=== PATIENT | female | born 1990 | race African-American/Black ===

== ENCOUNTER → 2019-10-17 13:33 | Outpatient (CLI) | payer BC, SELFPAY | PROVIDERS: PCP Family Medicine; Referring Provider Family Medicine; Visit Provider Family Medicine | DX: R05 Cough (principal) | CPT/HCPCS: 87633 ==

== ENCOUNTER → 2020-02-29 16:41 | Outpatient (CLI) | payer OTHER, SELFPAY ==
[2020-02-29 14:59] VITALS: BMI 39.1
[2020-03-05 21:17] LABS: HPV Reflexed? NOT INDICATED
== END ==
PROVIDERS: PCP Family Medicine; Referring Provider Nurse Practitioner Women's Health; Visit Provider Nurse Practitioner Women's Health
DX: Z12.4 Encounter for screening for malignant neoplasm of cervix (principal)
CPT/HCPCS: 88175; G0145

== ENCOUNTER → 2020-08-02 | Outpatient (CLI) | payer OTHER, SELFPAY ==
[2020-08-02 13:55] VITALS: BMI 43.8
== END | disposition home or self-care (01) ==
LOC: LABSPEC 15:17
PROVIDERS: PCP Family Medicine; Referring Provider Obstetrics & Gynecology; Visit Provider Obstetrics & Gynecology
DX: R35.0 Frequency of micturition (principal)
CPT/HCPCS: 87086; 87088

== ENCOUNTER 2021-08-27 11:43 | Outpatient (CLI) | payer OTHER, SELFPAY ==
[2021-08-27 12:17] LABS: Amphetamine Urine VISTA NEGATIVE (<1000 ng/mL); Barbiturate Urine VISTA NEGATIVE (< 200 ng/mL); Benzodiazepine Urine VISTA NEGATIVE (< 200 ng/mL); Cocaine Urine VISTA NEGATIVE (< 300 ng/mL); Ecstacy Urine VISTA NEGATIVE (< 500 ng/mL); Methadone Urine VISTA NEGATIVE (< 300 ng/mL); PCP Urine VISTA NEGATIVE (< 25 ng/mL); THC Urine VISTA NEGATIVE (< 50 ng/mL); Vista UDS pH Range 5
[2021-08-29 00:06] LABS: Chlamydia By Nucleic Acid AMP Negative (Negative)
[2021-08-29 14:34] LABS: Gonococcus By Nucleic Acid AMP Negative (Negative)
== END 2021-08-27 23:59 | disposition home or self-care (01) ==
LOC: LABSPEC 11:44
PROVIDERS: PCP Family Medicine; Visit Provider Obstetrics & Gynecology
DX: O09.90 Supervision of high risk pregnancy, unspecified, unspecified trimester (principal)
CPT/HCPCS: 80307; 87086; 87088; 87491; 87591

== ENCOUNTER 2021-10-22 13:55 | Outpatient (CLI) | payer OTHER, SELFPAY ==
[2021-10-22 14:35] LABS: Absolute Lymphocyte Count 1.89 X10^3/uL (0.83-4.51); Absolute Neutrophil Count 4.4 X10^3/uL (2.0-7.7); Basophil# 0.04 X10^3/uL; Basophil% 0.6 % (0-1); Eosinophil# 0.29 X10^3/uL; Eosinophils% 4.1 % (0-5); Hematocrit 35.2 % (37-47); Hemoglobin 11.2 g/dL (12.0-15.0); Lymphocyte # 1.89 X10^3/ul (0.83-4.51); Lymphocyte % 26.5 % (19-41); Mean Corp Hgb Conc 31.8 g/dL (32-36); Mean Corpuscular Hgb 26.7 pg (27.0-32.0); Mean Platelet Vol. 9.4 fl (6.2-12.0); Monocyte# 0.46 X10^3/uL; Monocyte% 6.4 % (0-10); NRBC Flagged by Analyzer 0 % (0-5); Neutrophil # 4.38 X10^3/uL (2.7-7.7); Neutrophil % 61.3 % (47-70); Platelet Count 286 K/mm3 (150-450); RBC Distribution Width CV 16.4 % (11.6-14.6); RBC Distribution Width SD 50.4 fl (35.1-43.9); Red Blood Count 4.19 M/mm3 (4.2-5.4); White Blood Count 7.1 K/mm3 (4.4-11.0)
[2021-10-22 15:14] LABS: Glucose Challenge Gest 1H 50g 184 mg/dL (70-140)
[2021-10-23 13:25] LABS: HIV - WCH Non-Reactive (Nonreactive); Hepatitis B Surface Antigen Non-Reactive (Nonreactive); Hepatitis C Antibody Non-Reactive (Nonreactive); Rubella IgG Reactive (Nonreactive); Syphilis Antibodies Non-reactive
== END 2021-10-22 23:59 | disposition home or self-care (01) ==
LOC: PAVLAB 13:56
PROVIDERS: PCP Family Medicine; Referring Provider Obstetrics & Gynecology; Visit Provider Obstetrics & Gynecology
DX: O99.210 Obesity complicating pregnancy, unspecified trimester (principal)
CPT/HCPCS: 36415; 82950; 85025; 86703; 86762; 86780; 86803; 86850; 86900; 86901; 87340

== ENCOUNTER → 2022-01-22 | Outpatient (CLI) | payer OTHER, SELFPAY ==
--- NOTE | 2022-01-22 07:55 | US_ITS ---
STUDY: SECOND AND THIRD TRIMESTER OBSTETRICAL ULTRASOUND - LIMITED REASON FOR EXAM: Female, 31 years old growth -- 28 week LMP: 06/28/2021. PRIOR ULTRASOUND: None. TECHNIQUE: Transabdominal and Transvaginal TECHNICAL QUALITY: Adequate. FINDINGS: There is a single intrauterine fetus. The fetus is in a cephalic presentation. There is demonstrated cardiac activity with a heart rate of 153 bpm. There is a normal amniotic fluid volume. The largest amniotic fluid pocket measures 4.8 cm. The amniotic fluid index (IVELISSE) is 14.1 cm. The placenta is posterior in location and is not low lying. There are Grade 1 placental changes. The cervix measures 4.7 cm in length. BIOMETRY: BPD: 7.7 cm: 30 weeks, 6 days HC: 27.8 cm: 30 weeks, 3 days AC: 26.4 cm: 30 weeks, 3 days FL: 5.6 cm: 29 weeks, 2 days Age by LMP: 29 weeks, 5 days. ESPINOZA by LMP: 04/04/2022. age by current US: 30 weeks, 1 days. ESPINOZA by current US: 04/01/2022. Estimated weight: 1544 grams, +/- 232 grams, 57 percentile. US/OB Limited With Biometrics IMPRESSION: Single live uterine gestation with a mean gestational age of 30 weeks and 1 day Electronically Signed: Robert Kitchen MD at 9:40 EDT ,
== END | disposition home or self-care (01) ==
PROVIDERS: PCP Family Medicine; Visit Provider Obstetrics & Gynecology
DX: O24.414 Gestational diabetes mellitus in pregnancy, insulin controlled (principal); Z3A.30 30 weeks gestation of pregnancy
CPT/HCPCS: 76816

== ENCOUNTER → 2022-02-09 | Outpatient (CLI) | payer OTHER, SELFPAY ==
--- NOTE | 2022-02-09 17:35 | US_ITS ---
STUDY: OBSTETRICAL ULTRASOUND - BIOPHYSICAL PROFILE REASON FOR EXAM: Female, 31 years old. Obesity in . Gestational diabetes. well being. LMP: 06/28/2021. PRIOR ULTRASOUND: 01/22/2022. TECHNIQUE: Transabdominal TECHNICAL QUALITY: Adequate. FINDINGS: There is a single intrauterine fetus. The fetus is in a cephalic presentation. There is demonstrated cardiac activity with a heart rate of bpm. There is a normal amniotic fluid volume. The largest amniotic fluid pocket measures 5.02 cm. The amniotic fluid index (IVELISSE) is 13.41 cm. The placenta is posterior in location and is not low lying. There are Grade 1 placental changes. Age by LMP: 32 weeks, 2 days. ESPINOZA by LMP: 04/04/2022. age by prior US: 32 weeks, 5 days. ESPINOZA by prior US: 04/01/2022. BIOPHYSICAL PROFILE: Breathing Movements (FBM): 2 Gross Body Movements (GBM): 2 Tone (FT): 2 Amniotic Fluid Volume (AFV): 2 TOTAL SCORE: 8 / 8 US/Biophysical Prof W/O Non Stres IMPRESSION: Normal biophysical profile of 02/23. Electronically Signed: Papo Street DO at 23:50 EDT ,
== END | disposition home or self-care (01) ==
LOC: US 17:31
PROVIDERS: PCP Family Medicine; Referring Provider Obstetrics & Gynecology; Visit Provider Obstetrics & Gynecology
DX: O24.419 Gestational diabetes mellitus in pregnancy, unspecified control (principal); O99.213 Obesity complicating pregnancy, third trimester; Z3A.32 32 weeks gestation of pregnancy
CPT/HCPCS: 76819

== ENCOUNTER 2022-02-10 13:45 | Outpatient (CLI) | payer OTHER, SELFPAY ==
[2022-02-10 14:09] VITALS: BP 128/73; PULSE 92; TEMP 36.6; O2SAT 100
[2022-02-10 14:17] VITALS: BMI 49.1
[2022-02-10 14:52] LABS: ROM Internal Control Test YES-OK TO RESULT pt. (Internal QC); ROM Patient Test Negative (Negative)
[2022-02-10 15:31] LABS: Mucous, Urine 0 SEEN /hpf (<or=2+); Red Blood Cells-Urine 0 SEEN /hpf (0-5)
[2022-02-10] MEDS: cycloBENZAPRine HCl 5 MG TABLET PO (15:35)
[2022-02-10] MEDS: Ondansetron ODT 4 MG Tablet PO (15:35)
[2022-02-10 15:40] LABS: Color, Urine Yellow (Yellow); Glucose, Dipstick Normal (Normal); Ketone-Dipstick 50 mg/dl (Negative); Leukocyte Esterase-Dipstick 25 /ul (Negative); Nitrite-Dipstick Negative (Negative); Occult Blood-Urine Negative /ul (Negative); Protein-Dipstick 30 mg/dl (Negative); Urine Bilirubin Dipstick Negative (Negative); Urine Clarity Sl. Cloudy (Clear); Urine Urobilinogen Normal (Normal)
--- NOTE | 2022-02-10 16:05 | NURSING ---
Dr. Silva notified of results of UA. She stated that patient can have the option of receiving 2 liters of IV fluid in the hospital or she can go home and drink at least one liter of fluid before bed and two liters tomorrow. The patient opted to go home and drink oral fluids.
--- NOTE | 2022-02-10 16:05 | OB.TRI.HP_ITS ---
HPI - General General Date of Admission: 02/10/22 HPI Narrative FRANCOIS HINTON, is a 31 y/o @ 32 weeks 3 days who presents to L&D with low back pain radiating to her abdomen and leaking fluid. She denies vaginal bleeding or dec fm. She denies recent intercourse and states that she was on her feet all day at work. Maternal Data Information ESPINOZA Calculator Estimated Delivery Date Method Current WG Current Estimate 04/04/22 LMP (Certain) 32w 3d PFSH PFSH Medical History Asthma Home Medications albuterol sulfate 90 mcg/actuation aerosol inhaler 1 - 2 puff inhalation Q4H PRN PRN Shortness Of Breath 02/23/14 [History Last Taken 06/17/14 21:00] cetirizine 10 mg capsule (Zyrtec) 10 mg PO DAILY PRN 08/14/21 [History Last Taken Unknown] escitalopram oxalate 10 mg tablet (Lexapro) 10 mg PO DAILY 08/14/21 [History Last Taken Unknown] blood sugar diagnostic (Truetrack Test strips) #100 ea 10/22/21 [Rx Last Taken Unknown] blood-glucose meter (Truetrack Blood Glucose System kit) #1 ea 10/22/21 [Rx Last Taken Unknown] BD Ultra-Fine Chrissie Pen Needle 32 gauge x 5/32 (pen needle, diabetic) #360 ea 12/01/21 [Rx Last Taken Unknown] OneTouch Verio test strips (blood sugar diagnostic) #360 ea 12/01/21 [Rx Last Taken Unknown] Allergy/AdvReac Type Severity Reaction Status Date / Time No Known Allergies Allergy Verified 12/25/21 10:20 pet dander Allergy Mild unknown Uncoded 12/25/21 10:20 seasonal allergies Allergy Mild unknown Uncoded 12/25/21 10:20 Family History Mother CVA (cerebral vascular accident) Bipolar 1 disorder Brother Bipolar 1 disorder Surgical History History of History of cornea transplant History of hernia repair Hx of bilateral breast reduction surgery Social History adopted: Yes household members: significant other, family and children number of children: 1 current occupational status: employed 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 Date Name GA/Weeks Outcome Route Bth Weight Infant Gen [facility] Irma Hinton 06/19/14 36 live - 6# Female >30 hr epidural [facility] Jennie Haile Delivery Date: 06/19/14 Last Updated by: Alison Tysno TEA BAG PACKER, TEA BAG PACKER-C face/cheek presentation. Visit Details Expected Delivery Route/Plan TOLAC patient counseled regarding risks/benefits of trial of labor versus repeat . ACOG/uptodate education given to patient. [] % likelihood of success per calculator TOLAC consent form signed: [] Labor Preferences- CB/BF classes: [] labor support person: [] labor intervention preferences: [] pain management options preferred: thinking of cut cord/dad catch: [] : [] PP control planned: [] discussed possible routes of delivery and associated risks: [] special requests: [] Plans Covid status:discussed Flu vaccine: discussed Tdap vaccine: given Rhogam: na LARC form signed: [] movement and labor precautions reviewed. Problem list reviewed and updated with the most current plan of care details and appropriate orders placed. Relevant counseling for the gestational age provided. Continue routine care and follow up unless otherwise noted in visit notes/problem list details OB Flowsheet Initial Weight: Not Recorded Date -?-?-?-?-?-?-?-?-?-?-?-?- EGA Weight BP Urine Prot -?-?-?-?-?-?-?-?-?-?-?-?- Glucose FHR FuHt Pres Dilation -?-?-?-?-?-?-?-?-?-?-?-?- Effaced St Visit Note 08/27/21 -?-?-?-?-?-?-?-?-?-?-?-?- 8w 4d 252 lb 6 oz 128/80 -?-?-?-?-?-?-?-?-?-?-?-?- 171 -?-?-?-?-?-?-?-?-?-?-?-?- JV- CRL consiste nt with LMP. will discuss next visit. early gct ordered 09/25/21 -?-?-?-?-?-?-?-?-?-?-?-?- 12w 5d 252 lb 8 oz 138/80 Nega tive -?-?-?-?-?-?-?-?-?-?-?-?- Negative 149 -?-?-?-?-?-?-?-?-?-?-?-?- JV- CRL 12w6d. p t was nervous and reassured. still needs early gct. 10/22/21 -?-?-?-?-?-?-?-?-?-?-?-?- 16w 4d 250 lb 6 oz 126/78 Nega tive -?-?-?-?-?-?-?-?-?-?-?-?- Negative 161 -?-?-?-?-?-?-?-?-?-?-?-?- MH-No VB, LOF.No movement yet. Will do PNL with GCT today. 11/27/21 -?-?-?-?-?-?-?-?-?-?-?-?- 21w 5d 253 lb 110/88 Negative -?-?-?-?-?-?-?-?-?-?-?-?- Negative 141 -?-?-?-?-?-?-?-?-?-?-?-?- JV-MF ultrasaou nd recommends 22 and 24 week ultrasounds of CL due collin 36 week delivery. GDM to see Dr. Ribera. monitor is on back order. 12/25/21 -?-?-?-?-?-?-?-?-?-?-?-?- 25w 5d 254 lb 6 oz 126/82 Tra e -?-?-?-?-?-?-?-?-?-?-?-?- Negative 147 -?-?-?-?-?-?-?-?-?-?-?-?- JV- pt did not d o her 22 or 24 week scans because of finanal difficulties. She is willing to see what it would cost to do a growth scan at 28, 32, and 36 weeks at the hospital. orders in. 01/13/22 -?-?-?-?-?-?-?-?-?-?-?-?- 28w 3d 256 lb 112/80 Negative -?-?-?-?-?-?-?-?-?-?-?-?- Negative 145 31 -?-?-?-?-?-?-?-?-?-?-?-?- SM- no vb lof go od fm no regular ctx. discussed RLTCS scheduleing and diabetes care. 01/29/22 -?-?-?-?-?-?-?-?-?-?-?-?- 30w 5d 263 lb 114/70 114/70 Negative -?-?-?-?-?-?-?-?-?-?-?-?- Negative 145 33 -?-?-?-?-?-?-?-?-?-?-?-?- SM- no vb lof go od fm no regular ctx start 2x weekly tesitng at 32 02/09/22 -?-?-?-?-?-?-?-?-?-?-?-?- 32w 2d 260 lb 122/74 Negative -?-?-?-?-?-?-?-?-?-?-?-?- Negative -?-?-?-?-?-?-?-?-?-?-?-?- Was for NST only and unable to obtain due to body habitus. BPP ordered ROS Constitutional Constitutional: Reports systems reviewed and no addt'l complaints, except as documented Gastrointestinal Gastrointestinal: Denies bloating, constipation, cramping, diarrhea, nausea or vomiting Genitourinary Genitourinary: Reports other Details: Denies vaginal odor, vaginal bleeding, or vaginal discharge ; Denies difficulty urinating or flank pain Physical Exam HEENT normocephalic Resp normal respiratory effort and normal air movement GI GI Narrative: gravid, non-tender Inspection: gravid no CVA tenderness Amniotic Fluid: no amniotic fluid noted and other cx: closed/thick/high/ medium consistency Extremity normal to inspection General Extremity: edema bilateral (trace ) NST FHR Rate Baby A Baseline: 140 Variability:: Moderate Accelerations:: 10 x 10 Decelerations:: None NST Reactive:: Yes FHR Category:: Category I Assessment & Plan (1) Current with history of pre-term labor in third trimester: COMMENT: Previous delivery at 36 weeks. nl anatomy scan, declined extra CL screenings. PLAN: no signs of PTL at this time. will collet a UA to rule out UTI and try PO hydration, flexeril, and 4 mg of zofran for complaint of mild nausea. if no improvement will recommend IV fluids and extended monitoring. (2) Gestational diabetes: QUALIFIERS: Gestational diabetes mellitus control: insulin- controlled Trimester: second trimester Qualified Code(s): O24.414 - Gestational diabetes mellitus in , insulin controlled COMMENT: diagnoes 1 TM. nl optho evaluation within last year. to see Dr. Ribera on friday 12/01 to discuss on insulin- start nsts twice weekly starting 32 weeks. (3) Obesity affecting : COMMENT: 1st T GCT: (4) : QUALIFIERS: Weeks of gestation: 32 weeks Qualified Code(s): Z3A.32 - 32 weeks gestation of COMMENT: declines genetic ntd and carrier screen. Anatomy US normal. (5) Supervision of high risk , antepartum: COMMENT: PRR ESPINOZA 04/04/22. boy Jeffery PC:Ai. fiance:Deja) First together (6) History of : COMMENT: Consider TOLAC. transverse lie, face/cheek presentation, Dr Acuña. scheduled cs for 03/31 @ 12 with JV in case not favorable. (7) Asthma: COMMENT: inhaler prn (8) Anxiety: COMMENT: lexapro/stable Charges/Coding Multi Select Codes Visit Charges Office Visit/Consults: 50034 OV L3 Est Urinary/Genital Urinary/Genital CPT Codes: 22238-17 non-stress test Interp
[2022-02-10 16:06] LABS: Bacteria 2+ /hpf (None Seen); Squamous Epithelial Cells - UA 5-10 SEEN /hpf (5-10); White Blood Cells 0-5 SEEN /hpf (0-5)
== END 2022-02-10 16:24 | disposition home or self-care (01) ==
LOC: WPOUT 13:51 → WP 13:51
PROVIDERS: PCP Family Medicine; Referring Provider Obstetrics & Gynecology; Visit Provider Obstetrics & Gynecology
DX: O26.893 Other specified pregnancy related conditions, third trimester (principal); M54.50 Low back pain, unspecified; R11.0 Nausea; O24.414 Gestational diabetes mellitus in pregnancy, insulin controlled; O99.213 Obesity complicating pregnancy, third trimester; E66.9 Obesity, unspecified; O99.513 Diseases of the respiratory system complicating pregnancy, third trimester; O99.343 Other mental disorders complicating pregnancy, third trimester; F41.9 Anxiety disorder, unspecified; Z3A.32 32 weeks gestation of pregnancy
CPT/HCPCS: 59025; 59050; 81001; 84112; 87086; 87088; 99218; G0378

== ENCOUNTER → 2022-02-16 | Outpatient (CLI) | payer BC, SELFPAY ==
[2022-02-16 09:42] LABS: Absolute Lymphocyte Count 2.57 X10^3/uL (0.83-4.51); Absolute Neutrophil Count 5.9 X10^3/uL (2.0-7.7); Basophil# 0.03 X10^3/uL; Basophil% 0.3 % (0-1); Eosinophil# 0.23 X10^3/uL; Eosinophils% 2.4 % (0-5); Hematocrit 29.5 % (37-47); Hemoglobin 8.9 g/dL (12.0-15.0); Lymphocyte # 2.57 X10^3/ul (0.83-4.51); Lymphocyte % 26.3 % (19-41); Mean Corp Hgb Conc 30.2 g/dL (32-36); Mean Corpuscular Hgb 24.9 pg (27.0-32.0); Mean Corpuscular Volume 82.6 fL (81-99); Mean Platelet Vol. 9.3 fl (6.2-12.0); Monocyte# 0.71 X10^3/uL; Monocyte% 7.3 % (0-10); NRBC Flagged by Analyzer 0.6 % (0-5); Neutrophil # 5.94 X10^3/uL (2.7-7.7); Neutrophil % 60.8 % (47-70); Platelet Count 304 K/mm3 (150-450); RBC Distribution Width CV 15.8 % (11.6-14.6); RBC Distribution Width SD 47.4 fl (35.1-43.9); Red Blood Count 3.57 M/mm3 (4.2-5.4); White Blood Count 9.8 K/mm3 (4.4-11.0)
== END | disposition home or self-care (01) ==
PROVIDERS: PCP Family Medicine; Visit Provider Obstetrics & Gynecology
DX: O09.90 Supervision of high risk pregnancy, unspecified, unspecified trimester (principal)
CPT/HCPCS: 36415; 85025

== ENCOUNTER → 2022-03-05 | Outpatient (CLI) | payer BC, SELFPAY ==
[2022-03-05 10:02] LABS: Ferritin 15 ng/mL (8-252)
[2022-03-06 11:22] LABS: Transferrin 447 mg/dL (192-364)
== END | disposition home or self-care (01) ==
LOC: PAVLAB 09:13
PROVIDERS: PCP Family Medicine; Referring Provider Nurse Practitioner Women's Health; Visit Provider Nurse Practitioner Women's Health
DX: O99.019 Anemia complicating pregnancy, unspecified trimester (principal)
CPT/HCPCS: 36415; 82728; 84466

== ENCOUNTER → 2022-03-12 | Outpatient (CLI) | payer BC, SELFPAY | END | disposition home or self-care (01) | LOC: LABSPEC 10:08 | PROVIDERS: PCP Family Medicine; Visit Provider Obstetrics & Gynecology | DX: O09.90 Supervision of high risk pregnancy, unspecified, unspecified trimester (principal) | CPT/HCPCS: 87081 ==

== ENCOUNTER 2022-03-17 10:10 | Outpatient (CLI) | payer BC, SELFPAY ==
[2022-03-17 10:23] VITALS: BMI 49.5
[2022-03-17 10:46] VITALS: BP 127/74; PULSE 62
--- NOTE | 2022-03-17 10:50 | US_ITS ---
STUDY: OBSTETRICAL ULTRASOUND - BIOPHYSICAL PROFILE REASON FOR EXAM: Female, 31 years old non reactive nst LMP: 06/28/2021. PRIOR ULTRASOUND: Comparison is made with prior study dated 02/09/2022. TECHNIQUE: Transabdominal TECHNICAL QUALITY: Adequate. FINDINGS: There is a single intrauterine fetus. The fetus is in a cephalic presentation. There is demonstrated cardiac activity with a heart rate of 148 bpm. There is a normal amniotic fluid volume. The largest amniotic fluid pocket measures 6.2 cm. The amniotic fluid index (IVELISSE) is 18 cm. The placenta is fundal and anterior in location. There are Grade 2 placental changes. Age by LMP: 37 weeks, 3 days. ESPINOZA by LMP: 04/04/2022. age by prior US: 37 weeks, 6 days. ESPINOZA by prior US: 04/01/2022. BIOPHYSICAL PROFILE: Breathing Movements (FBM): 2 Gross Body Movements (GBM): 2 Tone (FT): 2 Amniotic Fluid Volume (AFV): 2 TOTAL SCORE: 8 / 8 US/Biophysical Prof W/O Non Stres IMPRESSION: Normal biophysical profile of 8/8. Electronically Signed: Robert Kitchen MD at 12:27 EDT ,
--- NOTE | 2022-03-22 10:46 | OB.TRI.HP_ITS ---
HPI - General General Date of Admission: 03/17/22 HPI Narrative FRANCOIS HINTON, is a 31 F who presents to L&D for nst. NST in office was not reactive. Maternal Data Information ESPINOZA Calculator Estimated Delivery Date Method Current WG Current Estimate 04/04/22 LMP (Certain) 38w 1d [facility] Medical History Asthma Home Medications albuterol sulfate 90 mcg/actuation aerosol inhaler 1 - 2 puff inhalation Q4H PRN PRN Shortness Of Breath 02/23/14 [History Last Taken 06/17/14 21:00] cetirizine 10 mg capsule (Zyrtec) 10 mg PO DAILY PRN 08/14/21 [History Last Taken Unknown] escitalopram oxalate 10 mg tablet (Lexapro) 10 mg PO DAILY 08/14/21 [History Last Taken Unknown] blood sugar diagnostic (Truetrack Test strips) #100 ea 10/22/21 [Rx Last Taken Unknown] blood-glucose meter (Truetrack Blood Glucose System kit) #1 ea 10/22/21 [Rx Last Taken Unknown] BD Ultra-Fine Chrissie Pen Needle 32 gauge x 5/32 (pen needle, diabetic) #360 ea 12/01/21 [Rx Last Taken Unknown] OneTouch Verio test strips (blood sugar diagnostic) #360 ea 12/01/21 [Rx Last Taken Unknown] Allergy/AdvReac Type Severity Reaction Status Date / Time animal dander Allergy NEEDS Verified 03/19/22 07:58 FOLLOW-UP Seasonal Allergies: Uncoded Allergy NEEDS Verified 03/19/22 07:58 FOLLOW-UP Family History Mother CVA (cerebral vascular accident) Bipolar 1 disorder Brother Bipolar 1 disorder Surgical History History of History of cornea transplant History of hernia repair Hx of bilateral breast reduction surgery Social History adopted: Yes household members: significant other, family and children number of children: 1 current occupational status: employed 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 Date Name GA/Weeks Outcome Route Bth Weight Infant Gen Labor Lgth Anesthesia Del Locatn Provider FOColleen 06/19/14 Irma Hinton 06/19/14 36 live - 6# Female >[address] [facility] Jennie Haile Delivery Date: 06/19/14 Last Updated by: Alison Tyson HYDRAULIC ENGINEER, HYDRAULIC ENGINEER-C face/cheek presentation. Visit Details Expected Delivery Route/Plan TOLAC patient counseled regarding risks/benefits of trial of labor versus repeat . ACOG/uptodate education given to patient. [] % likelihood of success per calculator TOLAC consent form signed: [] Labor Preferences- CB/BF classes: [] labor support person: [] labor intervention preferences: [] pain management options preferred: thinking of cut cord/dad catch: [] : [] PP control planned: [] discussed possible routes of delivery and associated risks: [] special requests: [] Plans Covid status:discussed Flu vaccine: discussed Tdap vaccine: given Rhogam: na LARC form signed: [] movement and labor precautions reviewed. Problem list reviewed and updated with the most current plan of care details and appropriate orders placed. Relevant counseling for the gestational age provided. Continue routine care and follow up unless otherwise noted in visit notes/problem list details OB Flowsheet Initial Weight: Not Recorded Date -?-?-?-?-?-?-?-?-?-?-?-?- EGA Weight BP Urine Prot -?-?-?-?-?-?-?-?-?-?-?-?- Glucose FHR FuHt Pres Dilation -?-?-?-?-?-?-?-?-?-?-?-?- Effaced St Visit Note 08/27/21 -?-?-?-?-?-?-?-?-?-?-?-?- 8w 4d 252 lb 6 oz 128/80 -?-?-?-?-?-?-?-?-?-?-?-?- 171 -?-?-?-?-?-?-?-?-?-?-?-?- JV- CRL consiste nt with LMP. will discuss next visit. early gct ordered 09/25/21 -?-?-?--?-?-?-?-?-?-?-?-?- 12w 5d 252 lb 8 oz 138/80 Nega tive -?-?-?-?-?-?-?-?-?-?-?-?- Negative 149 -?-?-?-?-?-?-?-?-?-?-?-?- JV- CRL 12w6d. p t was nervous and reassured. still needs early gct. 10/22/21 -?-?-?-?-?-?-?-?-?-?-?-?- 16w 4d 250 lb 6 oz 126/78 Nega tive -?-?-?-?-?-?-?-?-?-?-?-?- Negative 161 -?-?-?-?-?-?-?-?-?-?-?-?- MH-No VB, LOF.No movement yet. Will do PNL with GCT today. 11/27/21 -?-?-?-?-?-?-?-?-?-?-?-?- 21w 5d 253 lb 110/88 Negative -?-?-?-?-?-?-?-?-?-?-?-?- Negative 141 -?-?-?-?-?-?-?-?-?-?-?-?- JV-MF ultrasaou nd recommends 22 and 24 week ultrasounds of CL due collin 36 week delivery. GDM to see Dr. Ribera. monitor is on back order. 12/25/21 -?-?-?-?-?-?-?-?-?-?-?-?- 25w 5d 254 lb 6 oz 126/82 Trac e -?-?-?-?-?-?-?-?-?-?-?-?- Negative 147 -?-?-?-?-?-?-?-?-?-?-?-?- JV- pt did not d o her 22 or 24 week scans because of finanal difficulties. She is willing to see what it would cost to do a growth scan at 28, 32, and 36 weeks at the hospital. orders in. 01/13/22 -?-?-?-?-?-?-?-?-?-?-?-?- 28w 3d 256 lb 112/80 Negative -?-?-?-?-?-?-?-?-?-?-?-?- Negative 145 31 -?-?-?-?-?-?-?-?-?-?-?-?- SM- no vb lof go od fm no regular ctx. discussed RLTCS scheduleing and diabetes care. 01/29/22 -?-?-?-?-?-?-?-?-?-?-?-?- 30w 5d 263 lb 114/70 114/70 Negative -?-?-?-?-?-?-?-?-?-?-?-?- Negative 145 33 -?-?-?-?-?-?-?-?-?-?-?-?- SM- no vb lof go od fm no regular ctx start 2x weekly tesitng at 32 02/09/22 -?-?-?-?-?-?-?-?-?-?-?-?- 32w 2d 260 lb 122/74 Negative -?-?-?-?-?-?-?-?-?-?-?-?- Negative -?-?-?-?-?-?-?-?-?-?-?-?- Was for NST only and unable to obtain due to body habitus. BPP ordered 02/12/22 -?-?-?-?-?-?-?-?-?-?-?-?- 32w 5d 258 lb 6 oz -?-?-?-?-?-?-?-?-?-?-?-?- 130 -?-?-?-?-?-?-?-?-?-?-?-?- JV- nst reactive , no complaints. wants to see if can deliver 03/16 however will only be 37 weeks and wants to . 02/16/22 -?-?-?-?-?-?-?-?-?-?-?-?- 33w 2d 262 lb 4 oz 112/71 Nega tive -?-?-?-?-?-?-?-?-?-?-?-?- Negative 140 -?-?-?-?-?-?-?-?-?-?-?-?- MH-NST only, charley ctive 02/19/22 -?-?-?-?-?-?-?-?-?-?-?-?- 33w 5d 262 lb 4 oz 115/81 Nega tive -?-?-?-?-?-?-?-?-?-?-?-?- Negative 145 -?-?-?-?-?-?-?-?-?-?-?-?- JV- nst reactive . glucose levels well controlled on 8 units nph at bedtime. plan for 39 week section unless labor happens prior or cx favorable for in duction. JV- nst reactive. glucose le vels well controlled on 8 units nph at bedtime. plan for 39 week section unless labor happens prior or cx favorable for induction. waiting on insurance approval for iron infusion. 02/24/22 -?-?-?-?-?-?-?-?-?-?-?-?- 34w 3d 258 lb 6 oz 120/74 Nega tive -?-?-?-?-?-?-?-?-?-?-?-?- Negative 140 -?-?-?-?-?--?-?-?-?-?-?-?- MH-NST only charley ctive. 02/26/22 -?-?-?-?-?-?-?-?-?-?-?-?- 34w 5d 259 lb 120/80 Negative -?-?-?-?-?-?-?-?-?-?-?-?- Negative 140 -?-?-?-?-?-?-?-?-?-?-?-?- SM- no vb lof go od fm no regular ctx BS controlled 03/03/22 -?-?-?-?-?-?-?-?-?-?-?-?- 35w 3d 260 lb 104/70 Negative -?-?-?-?-?-?-?-?-?-?-?-?- Negative 140 -?-?-?-?-?-?-?-?-?-?-?-?- -NST only reac tive 03/05/22 -?-?-?-?-?-?-?-?-?-?-?-?- 35w 5d 264 lb 112/82 Negative -?-?-?-?-?-?-?-?-?-?-?-?- Negative 140 -?-?-?-?-?-?-?-?-?-?-?-?- SM- no vb lof go od fm no regular ctx BS controlled 03/12/22 -?-?-?-?-?-?-?-?-?-?-?-?- 36w 5d 263 lb 6 oz 100/76 Nega tive -?-?-?-?-?-?-?-?-?-?-?-?- Negative 140 37 Cephalic 0 .5 -?-?-?-?-?-?-?-?-?-?-?-?- SM- no vb lof go od fm n oregular ctx 03/17/22 -?-?-?-?-?-?-?-?-?-?-?-?- 37w 3d 261 lb Negative -?-?-?-?-?-?-?-?-?-?-?-?- Negative -?-?-?-?-?-?-?-?-?-?-?-?- JV- NST not reac tive. sending tl L&D for extended monitoring 03/19/22 -?-?-?-?-?-?-?-?-?-?-?-?- 37w 5d 263 lb 4 oz 134/88 Nega tive -?-?-?-?-?-?-?-?-?-?-?-?- Negative 140 40 Cephalic 0 .5 -?-?-?-?-?-?-?-?-?-?-?-?- JV- no dilation still, nst reactive. pt is ok with section at 39 weeks (03/30/22) if no labor Assessment & Plan (1) Anemia complicating in third trimester: (2) Current with history of pre-term labor in third trimester: COMMENT: Previous delivery at 36 weeks. nl anatomy scan, declined extra CL screenings. (3) Gestational diabetes: QUALIFIERS: Gestational diabetes mellitus control: insulin- controlled Trimester: second trimester Qualified Code(s): O24.414 - Gestation al diabetes mellitus in , insulin controlled COMMENT: diagnoes 1 TM. nl optho evaluation within last year. to see Dr. Ribera on friday 12/01 to discuss on insulin- start nsts twice weekly starting 32 weeks. (4) Obesity affecting : COMMENT: 1st T GCT: (5) : QUALIFIERS: Weeks of gestation: 37 weeks Qualified Code(s): Z3A.37 - 37 weeks gestation of COMMENT: GBS Negative, declines genetic ntd and carrier screen. Anatomy US normal. (6) Supervision of high risk , antepartum: COMMENT: PRR ESPINOZA 04/04/22. camacho Gil PC:Ai. fiance:Deja) First together (7) History of : COMMENT: Consider TOLAC. transverse lie, face/cheek presentation, Dr Acuña. scheduled cs for 03/31 @ 7:30 with JV in case not favorable. (8) Asthma: COMMENT: inhaler prn (9) Anxiety: COMMENT: lexapro/stable
--- NOTE | 2022-03-22 10:46 | OB.TRI.NOTE ---
HPI - General General Date of Admission: 03/17/22 HPI Narrative FRANCOIS HINTON, is a 31 F who presents to L&D for nst. NST in office was not reactive. Maternal Data Information ESPINOZA Calculator Estimated Delivery Date Method Current WG Current Estimate 04/04/22 LMP (Certain) 38w 1d [facility] Medical History Asthma Home Medications albuterol sulfate 90 mcg/actuation aerosol inhaler 1 - 2 puff inhalation Q4H PRN PRN Shortness Of Breath 02/23/14 [History Last Taken 06/17/14 21:00] cetirizine 10 mg capsule (Zyrtec) 10 mg PO DAILY PRN 08/14/21 [History Last Taken Unknown] escitalopram oxalate 10 mg tablet (Lexapro) 10 mg PO DAILY 08/14/21 [History Last Taken Unknown] blood sugar diagnostic (Truetrack Test strips) #100 ea 10/22/21 [Rx Last Taken Unknown] blood-glucose meter (Truetrack Blood Glucose System kit) #1 ea 10/22/21 [Rx Last Taken Unknown] BD Ultra-Fine Chrissie Pen Needle 32 gauge x 5/32 (pen needle, diabetic) #360 ea 12/01/21 [Rx Last Taken Unknown] OneTouch Verio test strips (blood sugar diagnostic) #360 ea 12/01/21 [Rx Last Taken Unknown] Allergy/AdvReac Type Severity Reaction Status Date / Time animal dander Allergy NEEDS Verified 03/19/22 07:58 FOLLOW-UP Seasonal Allergies: Uncoded Allergy NEEDS Verified 03/19/22 07:58 FOLLOW-UP Family History Mother CVA (cerebral vascular accident) Bipolar 1 disorder Brother Bipolar 1 disorder Surgical History History of History of cornea transplant History of hernia repair Hx of bilateral breast reduction surgery Social History adopted: Yes household members: significant other, family and children number of children: 1 current occupational status: employed 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 Date Name GA/Weeks Outcome Route Bth Weight Infant Gen Labor Lgth Anesthesia Del Locatn Provider YANNA 06/19/14 Irma Hinton 06/19/14 36 live - 6# Female >30 hr epidural [facility] Jennie Haile Delivery Date: 06/19/14 Last Updated by: Alison Tyson MUNITIONS HANDLER SUPERVISOR, MUNITIONS HANDLER SUPERVISOR-C face/cheek presentation. Visit Details Expected Delivery Route/Plan TOLAC patient counseled regarding risks/benefits of trial of labor versus repeat . ACOG/uptodate education given to patient. [] % likelihood of success per calculator TOLAC consent form signed: [] Labor Preferences- CB/BF classes: [] labor support person: [] labor intervention preferences: [] pain management options preferred: thinking of cut cord/dad catch: [] : [] PP control planned: [] discussed possible routes of delivery and associated risks: [] special requests: [] Plans Covid status:discussed Flu vaccine: discussed Tdap vaccine: given Rhogam: na LARC form signed: [] movement and labor precautions reviewed. Problem list reviewed and updated with the most current plan of care details and appropriate orders placed. Relevant counseling for the gestational age provided. Continue routine care and follow up unless otherwise noted in visit notes/problem list details OB Flowsheet Initial Weight: Not Recorded Date <del>?</del> EGA Weight BP Urine Prot <del>?</del> Glucose FHR FuHt Pres Dilation <del>?</del> Effaced St Visit Note 08/27/21 <del>?</del> 8w 4d 252 lb 6 oz 128/80 <del>?</del> 171 <del>?</del> JV- CRL consistent with LMP. will discuss next visit. early gct ordered 09/25/21 <del>?</del> 12w 5d 252 lb 8 oz 138/80 Negative <del>?</del> Negative 149 <del>?</del> JV- CRL 12w6d. pt was nervous and reassured. still needs early gct. 10/22/21 <del>?</del> 16w 4d 250 lb 6 oz 126/78 Negative <del>?</del> Negative 161 <del>?</del> MH-No VB, LOF.No movement yet. Will do PNL with GCT today. 11/27/21 <del>?</del> 21w 5d 253 lb 110/88 Negative <del>?</del> Negative 141 <del>?</del> JV-MFM ultrasaound recommends 22 and 24 week ultrasounds of CL due collin 36 week delivery. GDM to see Dr. Ribera. monitor is on back order. 12/25/21 <del>?</del> 25w 5d 254 lb 6 oz 126/82 Trace <del>?</del> Negative 147 <del>?</del> JV- pt did not do her 22 or 24 week scans because of finanal difficulties. She is willing to see what it would cost to do a growth scan at 28, 32, and 36 weeks at the hospital. orders in. 01/13/22 <del>?</del> 28w 3d 256 lb 112/80 Negative <del>?</del> Negative 145 31 <del>?</del> SM- no vb lof good fm no regular ctx. discussed RLTCS scheduleing and diabetes care. 01/29/22 <del>?</del> 30w 5d 263 lb 114/70 114/70 Negative <del>?</del> Negative 145 33 <del>?</del> SM- no vb lof good fm no regular ctx start 2x weekly tesitng at 32 02/09/22 <del>?</del> 32w 2d 260 lb 122/74 Negative <del>?</del> Negative <del>?</del> Was for NST only and unable to obtain due to body habitus. BPP ordered 02/12/22 <del>?</del> 32w 5d 258 lb 6 oz <del>?</del> 130 <del>?</del> JV- nst reactive, no complaints. wants to see if can deliver 03/16 however will only be 37 weeks and wants to . 02/16/22 <del>?</del> 33w 2d 262 lb 4 oz 112/71 Negative <del>?</del> Negative 140 <del>?</del> MH-NST only, reactive 02/19/22 <del>?</del> 33w 5d 262 lb 4 oz 115/81 Negative <del>?</del> Negative 145 <del>?</del> JV- nst reactive. glucose levels well controlled on 8 units nph at bedtime. plan for 39 week section unless labor happens prior or cx favorable for induction. JV- nst reactive. glucose levels well controlled on 8 units nph at bedtime. plan for 39 week section unless labor happens prior or cx favorable for induction. waiting on insurance approval for iron infusion. 02/24/22 <del>?</del> 34w 3d 258 lb 6 oz 120/74 Negative <del>?</del> Negative 140 <del>?</del> MH-NST only reactive. 02/26/22 <del>?</del> 34w 5d 259 lb 120/80 Negative <del>?</del> Negative 140 <del>?</del> SM- no vb lof good fm no regular ctx BS controlled 03/03/22 <del>?</del> 35w 3d 260 lb 104/70 Negative <del>?</del> Negative 140 <del>?</del> MH-NST only reactive 03/05/22 <del>?</del> 35w 5d 264 lb 112/82 Negative <del>?</del> Negative 140 <del>?</del> SM- no vb lof good fm no regular ctx BS controlled 03/12/22 <del>?</del> 36w 5d 263 lb 6 oz 100/76 Negative <del>?</del> Negative 140 37 Cephalic 0.5 <del>?</del> SM- no vb lof good fm n oregular ctx 03/17/22 <del>?</del> 37w 3d 261 lb Negative <del>?</del> Negative <del>?</del> JV- NST not reactive. sending tl L&D for extended monitoring 03/19/22 <del>?</del> 37w 5d 263 lb 4 oz 134/88 Negative <del>?</del> Negative 140 40 Cephalic 0.5 <del>?</del> JV- no dilation still, nst reactive. pt is ok with section at 39 weeks (03/30/22) if no labor Assessment & Plan (1) Anemia complicating in third trimester: (2) Current with history of pre-term labor in third trimester: COMMENT: Previous delivery at 36 weeks. nl anatomy scan, declined extra CL screenings. (3) Gestational diabetes: QUALIFIERS: Gestational diabetes mellitus control: insulin-controlled Trimester: second trimester Qualified Code(s): O24.414 - Gestational diabetes mellitus in , insulin controlled COMMENT: diagnoes 1 TM. nl optho evaluation within last year. to see Dr. Ribera on friday 12/01 to discuss on insulin- start nsts twice weekly starting 32 weeks. (4) Obesity affecting : COMMENT: 1st T GCT: (5) : QUALIFIERS: Weeks of gestation: 37 weeks Qualified Code(s): Z3A.37 - 37 weeks gestation of COMMENT: GBS Negative, declines genetic ntd and carrier screen. Anatomy US normal. (6) Supervision of high risk , antepartum: COMMENT: PRR ESPINOZA 04/04/22. camacho Gil PC:Ai. fiance:Deja) First together (7) History of : COMMENT: Consider TOLAC. transverse lie, face/cheek presentation, Dr Acuña. scheduled cs for 03/31 @ 7:30 with JV in case not favorable. (8) Asthma: COMMENT: inhaler prn (9) Anxiety: COMMENT: lexapro/stable
== END 2022-03-17 11:54 | disposition home or self-care (01) ==
LOC: WPOUT 10:18 → WP 10:19
PROVIDERS: PCP Family Medicine; Visit Provider Obstetrics & Gynecology
DX: O99.013 Anemia complicating pregnancy, third trimester (principal); O99.513 Diseases of the respiratory system complicating pregnancy, third trimester; O09.10 Supervision of pregnancy with history of ectopic pregnancy, unspecified trimester; O99.343 Other mental disorders complicating pregnancy, third trimester; O24.414 Gestational diabetes mellitus in pregnancy, insulin controlled; J45.909 Unspecified asthma, uncomplicated; F41.9 Anxiety disorder, unspecified; Z3A.38 38 weeks gestation of pregnancy; Z79.899 Other long term (current) drug therapy
CPT/HCPCS: 59025; 76819; 99218; G0378

== ENCOUNTER 2022-03-30 21:15 | Inpatient (IN) | payer BC, SELFPAY ==
[2022-03-30 20:49] VITALS: BMI 49.8
[2022-03-30 21:11] VITALS: BP 139/87; PULSE 77; TEMP 36.8
[2022-03-30 21:13] LABS: ROM Internal Control Test YES-OK TO RESULT pt. (Internal QC)
[2022-03-30 21:14] LABS: ROM Patient Test POSITIVE (Negative)
[2022-03-30 21:41] VITALS: BP 139/87; PULSE 77; RESP 16; TEMP 36.8; O2SAT 98
[2022-03-30] MEDS: Lactated Ringers 1,000 ML 999 ML IV (21:45)
[2022-03-30 22:03] LABS: Absolute Neutrophil Count 6.9 X10^3/uL (2.0-7.7); Basophil# 0.04 X10^3/uL; Basophil% 0.4 % (0-1); Eosinophil# 0.25 X10^3/uL; Eosinophils% 2.3 % (0-5); Hemoglobin 9.5 g/dL (12.0-15.0); Lymphocyte % 24.7 % (19-41); Mean Corp Hgb Conc 29.7 g/dL (32-36); Mean Corpuscular Hgb 24.2 pg (27.0-32.0); Mean Corpuscular Volume 81.6 fL (81-99); Mean Platelet Vol. 10.2 fl (6.2-12.0); Monocyte# 0.87 X10^3/uL; NRBC Flagged by Analyzer 0.9 % (0-5); Neutrophil # 6.86 X10^3/uL (2.7-7.7); Neutrophil % 62.9 % (47-70); Platelet Count 298 K/mm3 (150-450); RBC Distribution Width CV 19.8 % (11.6-14.6); RBC Distribution Width SD 56.8 fl (35.1-43.9); Red Blood Count 3.92 M/mm3 (4.2-5.4); White Blood Count 10.9 K/mm3 (4.4-11.0)
[2022-03-30 22:41] LABS: Bedside Glucose 82 mg/dL (74-106)
[2022-03-30] MEDS: Acetaminophen 500 MG Tablet 1000 MG PO (23:57)
[2022-03-30] MEDS: Sodium Citrate/Citric Acid 30 ML UDC PO (23:57)
[2022-03-31] VITALS (16 sets, daily range): BP systolic 125–149; BP diastolic 65–92; PULSE 63–105; RESP 16–18; TEMP 36.4–36.7; O2SAT 94–100
[2022-03-31] MEDS: Lactated Ringers 1,000 ML 150 ML IV
[2022-03-31] MEDS: Oxytocin 30 units/NS 500 ml 30 UNITS/500 ML IV.SOLN 167 UNITS IV (01:45)
--- NOTE | 2022-03-31 01:52 | HP.PCM.OB_ITS ---
HPI - General General Date of Admission: 03/30/22 HPI Narrative FRANCOIS HINTON, is a 31 F who presents with clear SROM irregular ctx good fm but only 1/2 cm dilation. plan for RLTCS. Maternal Data Information ESPINOZA Calculator Estimated Delivery Date Method Current WG Current Estimate 04/04/22 LMP (Certain) 39w 3d PFSH PFSH Medical History (Updated 03/31/22 @ 01:[address] Tiffanie Huerta MD) Anxiety Asthma Gestational diabetes Home Medications albuterol sulfate 90 mcg/actuation aerosol inhaler 1 - 2 puff inhalation Q4H PRN PRN Shortness Of Breath 02/23/14 [History Last Taken 06/17/14 21:00] cetirizine 10 mg capsule (Zyrtec) 10 mg PO DAILY PRN 08/14/21 [History Last Taken Unknown] escitalopram oxalate 10 mg tablet (Lexapro) 10 mg PO DAILY 08/14/21 [History Last Taken Unknown] blood sugar diagnostic (Truetrack Test strips) #100 ea 10/22/21 [Rx Last Taken Unknown] blood-glucose meter (Truetrack Blood Glucose System kit) #1 ea 10/22/21 [Rx Last Taken Unknown] BD Ultra-Fine Chrissie Pen Needle 32 gauge x 5/32 (pen needle, diabetic) #360 ea 12/01/21 [Rx Last Taken Unknown] OneTouch Verio test strips (blood sugar diagnostic) #360 ea 12/01/21 [Rx Last Taken Unknown] Allergy/AdvReac Type Severity Reaction Status Date / Time animal dander Allergy NEEDS Verified 03/26/22 08:34 FOLLOW-UP Seasonal Allergies: Uncoded Allergy NEEDS Verified 03/26/22 08:34 FOLLOW-UP Family History Mother CVA (cerebral vascular accident) Bipolar 1 disorder Brother Bipolar 1 disorder Surgical History History of History of cornea transplant History of hernia repair Hx of bilateral breast reduction surgery Social History adopted: Yes household members: significant other, family and children number of children: 1 current occupational status: employed 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 Date Name GA/Weeks Outcome Route Bth Weight Infant Gen Labor Lgth Anesthesia Del Locatn Provider FOB 06/19/14 Irma Jessica Gurjit 06/19/14 36 live - 6# Female >30 hr epidural [facility] Jennie Haile Delivery Date: 06/19/14 Last Updated by: Alison Tyson HYDROGRAPHICAL TECHNICAL OFFICER, HYDROGRAPHICAL TECHNICAL OFFICER-C face/cheek presentation. Visit Details Expected Delivery Route/Plan TOLAC patient counseled regarding risks/benefits of trial of labor versus repeat . ACOG/uptodate education given to patient. [] % likelihood of success per calculator TOLAC consent form signed: [] Labor Preferences- CB/BF classes: [] labor support person: [] labor intervention preferences: [] pain management options preferred: thinking of cut cord/dad catch: [] : [] PP control planned: [] discussed possible routes of delivery and associated risks: [] special requests: [] Plans Covid status:discussed Flu vaccine: discussed Tdap vaccine: given Rhogam: na LARC form signed: [] movement and labor precautions reviewed. Problem list reviewed and updated with the most current plan of care details and appropriate orders placed. Relevant counseling for the gestational age provided. Continue routine care and follow up unless otherwise noted in visit notes/problem list details OB Flowsheet Initial Weight: Not Recorded Date -?-?-?-?-?-?-?-?-?-?-?-?- EGA Weight BP Urine Prot -?-?-?-?-?-?-?-?-?-?-?-?- Glucose FHR FuHt Pres Dilation -?-?-?-?-?-?-?-?-?-?-?-?- Effaced St Visit Note 08/27/21 -?-?-?--?-?-?-?-?-?-?-?-?- 8w 4d 252 lb 6 oz 128/80 Nega tive -?-?-?-?-?-?-?-?-?-?-?-?- Negative 171 -?-?-?-?-?-?-?-?-?-?-?-?- JV- CRL consiste nt with LMP. will discuss next visit. early gct ordered 09/25/21 -?-?-?-?-?-?-?-?-?-?-?-?- 12w 5d 252 lb 8 oz 138/80 Nega tive -?-?-?-?-?-?-?-?-?-?-?-?- Negative 149 -?-?-?-?-?-?-?-?-?-?-?-?- JV- CRL 12w6d. p t was nervous and reassured. still needs early gct. 10/22/21 -?-?-?-?-?-?-?-?-?-?-?-?- 16w 4d 250 lb 6 oz 126/78 Nega tive -?-?-?-?-?-?-?-?-?-?-?-?- Negative 161 -?-?-?-?-?-?-?-?-?-?-?-?- MH-No VB, LOF.No movement yet. Will do PNL with GCT today. 11/27/21 -?-?-?-?-?-?-?-?-?-?-?-?- 21w 5d 253 lb 110/88 Negative -?-?-?-?-?-?-?-?-?-?-?-?- Negative 141 -?-?-?-?-?-?-?-?-?-?-?-?- JV-MFM ultrasaou nd recommends 22 and 24 week ultrasounds of CL due collin 36 week delivery. GDM to see Dr. Ribera. monitor is on back order. 12/25/21 -?-?-?-?-?-?-?-?-?-?-?-?- 25w 5d 254 lb 6 oz 126/82 Trac e -?-?-?-?-?-?-?-?-?-?-?-?- Negative 147 -?-?-?-?-?-?-?-?-?-?-?-?- BECKY- pt did not d o her 22 or 24 week scans because of finanal difficulties. She is willing to see what it would cost to do a growth scan at 28, 32, and 36 weeks at the hospital. orders in. 01/13/22 -?-?-?-?-?-?-?-?-?-?-?-?- 28w 3d 256 lb 112/80 Negative -?-?-?-?-?-?-?-?-?-?-?-?- Negative 145 31 -?-?-?-?-?-?-?-?-?-?-?-?- SM- no vb lof go od fm no regular ctx. discussed RLTCS scheduleing and diabetes care. 01/29/22 -?-?-?-?-?-?-?-?-?-?-?-?- 30w 5d 263 lb 114/70 114/70 Negative -?-?-?-?-?-?-?-?-?-?-?-?- Negative 145 33 -?-?-?-?-?-?-?-?-?-?-?-?- SM- no vb lof go od fm no regular ctx start 2x weekly tesitng at 32 02/09/22 -?-?-?-?-?-?-?-?-?-?-?-?- 32w 2d 260 lb 122/74 Negative -?-?-?-?-?-?-?-?-?-?-?-?- Negative -?-?-?-?-?-?-?-?-?-?-?-?- Was for NST only and unable to obtain due to body habitus. BPP ordered 02/12/22 -?-?-?-?-?-?-?-?-?-?-?-?- 32w 5d 258 lb 6 oz -?-?-?-?-?-?-?-?-?-?-?-?- 130 -?-?-?-?-?-?-?-?-?-?-?-?- JV- nst reactive , no complaints. wants to see if can deliver 03/16 however will only be 37 weeks and wants to . 02/16/22 -?-?-?-?-?-?-?-?-?-?-?-?- 33w 2d 262 lb 4 oz 112/71 Nega tive -?-?-?-?-?-?-?-?-?-?-?-?- Negative 140 -?-?-?-?-?-?-?-?-?-?-?-?- MH-NST only, charley ctive 02/19/22 -?-?-?-?-?-?-?-?-?-?-?-?- 33w 5d 262 lb 4 oz 115/81 Nega tive -?-?-?-?-?-?-?-?-?-?-?-?- Negative 145 -?-?-?-?-?-?-?-?-?-?-?-?- JV- nst reactive . glucose levels well controlled on 8 units nph at bedtime. plan for 39 week section unless labor happens prior or cx favorable for induction. JV- nst reactive. glucose le vels well controlled on 8 units nph at bedtime. plan for 39 week section unless labor happens prior or cx favorable for induction. waiting on insurance approval for iron infusion. 02/24/22 -?-?-?-?-?-?-?-?-?-?-?-?- 34w 3d 258 lb 6 oz 120/74 Nega tive -?-?-?-?-?-?-?-?-?-?-?-?- Negative 140 -?-?-?-?-?-?-?-?-?-?-?-?- MH-NST only charley ctive. 02/26/22 -?-?-?-?-?-?-?-?-?-?-?-?- 34w 5d 259 lb 120/80 Negative -?-?-?-?-?-?-?-?-?-?-?-?- Negative 140 -?-?-?-?-?-?-?-?-?-?-?-?- SM- no vb lof go od fm no regular ctx BS controlled 03/03/22 -?-?-?-?-?-?-?-?-?-?-?-?- 35w 3d 260 lb 104/70 Negative -?-?-?-?-?-?-?-?-?-?-?-?- Negative 140 -?-?-?-?-?-?-?-?-?-?-?-?- -NST only reac tive 03/05/22 -?-?-?-?-?-?-?-?-?-?-?-?- 35w 5d 264 lb 112/82 Negative -?-?-?-?-?-?-?-?-?-?-?-?- Negative 140 -?-?-?-?-?-?-?-?--?-?-?-?- SM- no vb lof go od fm no regular ctx BS controlled 03/12/22 -?-?-?-?-?-?-?-?-?-?-?-?- 36w 5d 263 lb 6 oz 100/76 Nega tive -?-?-?-?-?-?-?-?-?-?-?-?- Negative 140 37 Cephalic 0 .5 -?-?-?-?-?-?-?-?-?-?-?-?- SM- no vb lof go od fm n oregular ctx 03/17/22 -?-?-?-?-?-?-?-?-?-?-?-?- 37w 3d 261 lb Negative -?-?-?-?-?-?-?-?-?-?-?-?- Negative -?-?-?-?-?-?-?-?-?-?-?-?- JV- NST not reac tive. sending tl L&D for extended monitoring 03/19/22 -?-?-?-?-?-?-?-?-?-?-?-?- 37w 5d 263 lb 4 oz 134/88 Nega tive -?-?-?-?-?-?-?-?-?-?-?-?- Negative 140 40 Cephalic 0 .5 -?-?-?-?-?-?-?-?-?-?-?-?- JV- no dilation still, nst reactive. pt is ok with section at 39 weeks (03/30/22) if no labor 03/24/22 -?-?-?-?-?-?-?-?-?-?-?-?- 38w 3d 262 lb 2 oz 135/80 135/80 -?-?-?-?-?-?-?-?-?-?-?-?- 140 -?-?-?-?-?-?-?-?-?-?-?-?- MH-NST only reac tive 03/26/22 -?-?-?-?-?-?-?-?-?-?-?-?- 38w 5d 263 lb 2 oz 134/88 Nega tive -?-?-?-?-?-?-?-?-?-?-?-?- Negative 130 -?-?-?-?-?-?-?-?-?-?-?-?- JV- nst reactive . preop instructions given. surgery wednesday. gets very woozy and will wear headphones. do not lower drape after . 03/30/22 -?-?-?-?-?-?-?-?-?-?-?-?- 39w 2d 264 lb 139/87 139/87 -?-?-?-?-?--?-?-?-?-?-?-?- -?-?-?-?-?-?-?-?-?-?-?-?- NST FHR Rate Baby A Baseline: 130 Variability:: Moderate Accelerations:: 15 x 15 Decelerations:: None NST Reactive:: Yes FHR Category:: Category I Uterine Activity:: irregular ROS Constitutional Constitutional: Reports systems reviewed and no addt'l complaints, except as documented Eyes Eyes: Denies change in vision ENT HEENT: Reports systems reviewed and no addt'l complaints, except as documented; Denies headache(s) Cardiovascular Cardiovascular: Reports systems reviewed and no addt'l complaints, except as documented; Denies chest pain or dyspnea Respiratory/Chest Respiratory/Chest: Reports systems reviewed and no addt'l complaints, except as documented Gastrointestinal Gastrointestinal: Reports systems reviewed and no addt'l complaints, except as documented; Denies abdominal pain Genitourinary Genitourinary: Reports systems reviewed and no addt'l complaints, except as documented, contractions Details: present (irregular) and movement Details: present; Denies dysuria or genital lesions Musculoskeletal Musculoskeletal: Reports systems reviewed and no addt'l complaints, except as documented Neurologic Neurologic: Reports systems reviewed and no addt'l complaints, except as documented Endocrine Endocrinology: Reports systems reviewed and no addt'l complaints, except as documented Vital Signs Vital Signs Vital Signs: 03/30/22 21:11 03/30/22 21:11 03/30/22 21:11 Temperature Temperature Source Temporal Pulse Rate 77 Respiratory Rate Blood Pressure 139/87 H Blood Pressure Mean BP Systolic 139 BP Diastolic 87 Blood Pressure Source Pulse Ox Oxygen Delivery Method 03/30/22 21:11 03/30/22 21:41 Temperature 98.3 F 98.3 F Temperature Source Temporal Pulse Rate 77 Respiratory Rate 16 Blood Pressure 139/87 H Blood Pressure Mean 104 BP Systolic BP Diastolic Blood Pressure Source Monitor Pulse Ox 98 Oxygen Delivery Method Room Air Weight Weight: 264 lb Body Mass Index (BMI) 49.8 Physical Exam Const alert, oriented x3, no apparent distress and healthy appearing HEENT normocephalic and moist oral mucous membranes Head and Scalp: atraumatic Neck full ROM, no lymphadenopathy, supple and thyroid normal General: trachea midline Lymph Lymphatic: no lymphadenopathy noted Chest inspection of chest normal Resp normal respiratory effort Cardio regular rate GI normal to inspection, nondistended, normoactive bowel sounds, soft to palpation and non-tender Inspection: gravid external exam normal Manual OB Exam: estimated gestational size appropriate, presentation ceph alic, dilated, effaced and station Extremity normal to inspection General Extremity: Negative for edema Skin no rashes or lesions noted Neuro no focal motor deficits and deep tendon reflexes 2+ bilaterally Motor Exam: strength 5/5 throughout and clonus absent Psych mental status grossly normal Labs Labs Labs: Blood Type O POSITIVE Antibody Screen NEGATIVE Hct 32.0 % (37-47) L Hgb 9.5 g/dL (12.0-15.0) L Obstetrics US Syphilis Total Ab Non-reactive VZV IgG Antibody 284 index (Immune >165) Rubella IgG Antibody Reactive (Nonreactive) Hep Bs Antigen Non-Reactive (Nonreactive) Chlamydia DNA (SHANNON) Negative (Negative) Neisseria gonorrhoeae DNA (SHANNON) Negative (Negative) HIV 1&2 Antibody Non-Reactive (Nonreactive) Glucose 1 Hr 50 gm 184 mg/dL (70-140) H Rhogam given: No Assessment & Plan (1) Asthma: COMMENT: inhaler prn (2) History of : COMMENT: Consider TOLAC. transverse lie, face/cheek presentation, Dr Acuña. scheduled cs for 03/31 @ 7:30 with JV in case not favorable. (3) Anemia complicating in third trimester: (4) Current with history of pre-term labor in third trimester: COMMENT: Previous delivery at 36 weeks. nl anatomy scan, declined extra CL screenings. (5) Gestational diabetes: QUALIFIERS: Gestational diabetes mellitus control: insulin- controlled Trimester: second trimester Qualified Code(s): O24.414 - Gestational diabetes mellitus in , insulin controlled COMMENT: diagnoes 1 TM. nl optho evaluation within last year. to see Dr. Ribera on friday 12/01 to discuss on insulin- start nsts twice weekly starting 32 weeks. (6) Obesity affecting : COMMENT: 1st T GCT: (7) : QUALIFIERS: Weeks of gestation: 38 weeks Qualified Code(s): Z3A.38 - 38 weeks gestation of COMMENT: GBS Negative, declines genetic ntd and carrier screen. Anatomy US normal. (8) Supervision of high risk , antepartum: COMMENT: PRR ESPINOZA 04/04/22. boy Jeffery PC:Ai. fiance:Deja) First together (9) Anxiety: COMMENT: lexapro/stable (10) SROM (spontaneous rupture of membranes): COMMENT: only FT dilated, proceed wtih RLTCS PLAN: Plan proceed with RLTCS
--- NOTE | 2022-03-31 01:56 | OP.PCM_ITS ---
Assessment & Plan (1) SROM (spontaneous rupture of membranes): COMMENT: only FT dilated, proceed wtih RLTCS (2) Anxiety: COMMENT: lexapro/stable (3) Supervision of high risk , antepartum: COMMENT: PRR ESPINOZA 04/04/22. camacho Jeffery PC:Ai. fiance:Juwan(Samir) First together (4) : QUALIFIERS: Weeks of gestation: 38 weeks Qualified Code(s): Z3A.38 - 38 weeks gestation of COMMENT: GBS Negative, declines genetic ntd and carrier screen. Anatomy US normal. (5) Obesity affecting : COMMENT: 1st T GCT: (6) Gestational diabetes: QUALIFIERS: Gestational diabetes mellitus control: insulin- controlled Trimester: second trimester Qualified Code(s): O24.414 - Gestational diabetes mellitus in , insulin controlled COMMENT: diagnoes 1 TM. nl optho evaluation within last year. to see Dr. Ribera on friday 12/01 to discuss on insulin- start nsts twice weekly starting 32 weeks. (7) Current with history of pre-term labor in third trimester: COMMENT: Previous delivery at 36 weeks. nl anatomy scan, declined extra CL screenings. (8) Anemia complicating in third trimester: (9) History of : COMMENT: Consider TOLAC. transverse lie, face/cheek presentation, Dr Acuña. scheduled cs for 03/31 @ 7:30 with JV in case not favorable. (10) Asthma: COMMENT: inhaler prn (11) delivery delivered: COMMENT: RLTCS 39 SM SROM camacho Gil Maternal Data Information ESPINOZA Calculator Estimated Delivery Date Method Current WG Current Estimate 04/04/22 LMP (Certain) 39w 3d Final ESPINOZA Source: LMP Gestational age: 39 Details Operative Information Date of Procedure: 03/31/22 Pre-Operative Diagnosis: previous Post-Operative Diagnosis: same Procedure Type: low transverse Type of Anesthesia: Epidural Special Medications: none Drain: Bell to straight drain Fluids Replaced: crystalloid Findings Description of Procedure: The patient was placed in the dorsal supine position with leftward tilt. Patient was prepped and draped in the normal sterile fashion. Pfannenstiel skin incision was made with the scalpel and carried through to the underlying layer of fascia with the scalpel. Fascia was nicked in the midline and the incision extended laterally. The rectus bellies were dissected off superiorly and inferiorly with out complication both sharply and bluntly. The peritoneum was entered digitally. The incision was stretched and Significant scar tissue was encountered with the omentum to the left lower uterine pelvis which were taken down with the Bovie. Low transverse uterine incision was made and the infant's head was delivered atraumatically followed by the anterior and posterior shoulders without complication the rest of the infant delivered. The cord was clamped and cut and the infant was handed off to awaiting nurse. The placenta was delivered spontaneously immediately following and was noted to be intact and have a three-vessel cord. The uterus was exteriorized cleared of all clots and debris, and the incision was closed in a single layer closure using #1 Monocryl. Significant scar tissue had been noted on the left side and the left fallopian tube had damage and was clubbed and was unable to be controlled with hemostasis therefore the end of the fallopian tube was removed with a partial salpingectomy. It was sutured with 3-0 Monocryl. The uterus was returned to the maternal abdomen and gutters were cleared of all clots and debris. Again some bleeding was noted in the left part of the incision which was sutured with 3 oh and #1 Monocryl and a 2-0 Vicryl to obtain hemostasis. [place] placed over the incision. Hemostasis noted. The omentum was carefully inspected to make sure there were no areas that were bleeding and several areas were oversewn and sutured with 3-0 Monocryl. the peritoneum was closed with 3-0 Monocryl in a running fashion. Gloves were changed prior to fascial closure. Fascia was closed with 0 PDS in a running fashion. Subcutaneous tissue was copiously irrigated and the skin was closed with 3-0 Monocryl in a subcuticular fashion. Mepilex dressing was applied without complication. Patient was taken to recovery in stable condition. It was discussed with the patient that based on the clinical information obtained during this encounter, combined with her history, at this time I would recommend cesareans for future deliveries if further pregnancies are desired. Amniotic Membrane Rupture Type: Artificial Amniotic Fluid Description: Clear Placental Delivery Description: Spontaneous Placenta Disposition: [facility] Cord Vessel Description: 3 Vessels Cord Entanglement: None Delayed Cord Clamping: Yes Complications Risks of Surgery Discussed w/Patient: Bleeding, Infection, Need for Future C-Sections and Injury to surrounding structure(s) including bowel and bladder Complications: none Admit VTE Documentation VTE Present on Admission: No VTE Mechan Device Prophylaxis: SCD's Procedures Urinary/Genital [id number]: [id number] Delivery [facility]
[2022-03-31] MEDS: Ketorolac 30 MG/ML Syringe IV ×4 (02:08→20:19)
--- NOTE | 2022-03-31 02:08 | DCINST_ITS ---
Discharge Instructions Diet Discharge Diet: No restrictions Activity Discharge Activity: Return to Normal Activity, May Drive, May Shower and May Take a Tub Bath (in 4 weeks) May resume sexual activity in: 6-8 weeks (after seen by OB provider) Weight Bearing Status: Full weight bearing Lifting Restrictions: none Dressing / Incision Call your doctor if your incision/area has: Continuous Slow Oozing, Sudden Increased Bleeding, Increased Pain/ Swelling, Increased Redness, Foul Smelling Discharge and - Call your doctor if you observe: Fever of 101 or Higher, Inability to urinate, Using more than 1 pad per hour (for more than 2 hours in a row or more), Shortness of breath, Dizziness, Chest pain and - (headache not controlled with tylenol, change in vision) Suture Line Care: Avoid Pulling/Pushing and Avoid Pinching/Bending Change Dressing in: 1 week (leave open to air after removed) Remove Dressing in: 1 week (if present) Cleanse incision/area with: Soap & Water and Keep Dressing Clean & Dry Follow Up Care Please Follow Up With: Tiffanie Huerta MD When: in 6 weeks for visit, call the office to make the appointment. If you had elevated blood pressures call the office to be seen within 1 week. Test Results: Test results from this visit will be discussed in further detail at your follow- up appointment, if applicable. Discharge Plan Admission Admit Date/Time: 03/30/22 21:15 Attending Provider: Tiffanie Huerta Primary Care Provider: Jarocho Valdovinos Discharge Orders/Prescriptions Prescriptions: No Action Zyrtec 10 mg capsule 10 mg PO DAILY PRN escitalopram oxalate [Lexapro] 10 mg tablet 10 mg PO DAILY (DME) OneTouch Verio test strips Strip See Rx Instructions .ROUTE .MEDSUPPLY Qty: 360 3RF Rx Instructions: 4x/day (DME) pen needle, diabetic [BD Ultra-Fine Chrissie Pen Needle] 32 gauge x 5/32 needle See Rx Instructions .ROUTE .MEDSUPPLY Qty: 360 1RF Rx Instructions: 4x/day albuterol sulfate 1 PUFF inhaler 1 - 2 puff INHALATION Q4H PRN PRN (Reason: Shortness Of Breath) (DME) blood-glucose meter [Truetrack Blood Glucose System] Kit See Rx Instructions .ROUTE .MEDSUPPLY Qty: 1 0RF Rx Instructions: As directed (DME) Truetrack Test Strip See Rx Instructions .ROUTE .MEDSUPPLY Qty: 100 4RF Rx Instructions: QID (check fasting and 2 hr pp) Referrals / Follow Up: Jarocho Valdovinos DO [Primary Care Provider] - Disposition Disposition (needs filled in before D/C Order can be placed): Home, Self Care
[2022-03-31] MEDS: HYDROmorphone 1 MG/ML Syringe IV (03:01)
[2022-03-31 03:40] LABS: Bedside Glucose 111 mg/dL (74-106)
[2022-03-31] MEDS: Lactated Ringers 1,000 ML 100 ML IV (04:45)
[2022-03-31] MEDS: Acetaminophen 500 MG Tablet 1000 MG PO ×3 (06:05→18:03)
[2022-03-31] MEDS: oxyCODONE 5 MG Tablet PO ×3 (07:12→17:06)
--- NOTE | 2022-03-31 09:45 | NURSING ---
This nurse reviewed student nurse Berenice Costa charting and agrees.
[2022-03-31] MEDS: Senna/Docusate Sodium 1 Tablet PO (11:00)
[2022-03-31] MEDS: Enoxaparin 40 MG/0.4 ML Syringe SC (14:19)
[2022-03-31] MEDS: 0.9% Saline Lock 10 ML Syringe IV ×2 (14:20→20:19)
--- NOTE | 2022-03-31 15:53 | NURSING ---
student charting reviewed by Delia REAL instructor
[2022-04-01] VITALS (7 sets, daily range): BP systolic 121–146; BP diastolic 66–85; PULSE 64–95; RESP 16–18; TEMP 36.2–36.8; O2SAT 97–98
[2022-04-01] MEDS: Acetaminophen 500 MG Tablet 1000 MG PO ×4 (00:23→18:30)
[2022-04-01] MEDS: Enoxaparin 40 MG/0.4 ML Syringe SC ×3 (00:23→22:26)
[2022-04-01] MEDS: Ibuprofen 600 MG Tablet PO ×4 (02:08→20:10)
[2022-04-01 05:10] LABS: Hematocrit 26.7 % (37-47); Mean Corpuscular Hgb 24.6 pg (27.0-32.0); Mean Corpuscular Volume 82.2 fL (81-99); Mean Platelet Vol. 9.3 fl (6.2-12.0); Platelet Count 264 K/mm3 (150-450); RBC Distribution Width CV 19.6 % (11.6-14.6); RBC Distribution Width SD 57.7 fl (35.1-43.9); Red Blood Count 3.25 M/mm3 (4.2-5.4); White Blood Count 13.3 K/mm3 (4.4-11.0)
[2022-04-01] MEDS: oxyCODONE 5 MG Tablet PO ×3 (05:12→21:23)
--- NOTE | 2022-04-01 05:17 | NURSING ---
All charting done by JANAE Mix reviewed by JANAE Steiner
[2022-04-01 05:31] LABS: Bedside Glucose 91 mg/dL (74-106)
--- NOTE | 2022-04-01 09:42 | PN.OBGYN_ITS ---
Subjective Subjective Patient doing well without complaints. Tolerating PO. Ambulating and voiding without difficulty. Feeding well. Denies chest pain, shortness of breath, calf pain/swelling, fevers, chills, lightheadedness. Objective Data Objective Data Vital Signs: Vital Signs Temp Pulse Resp BP Pulse Ox O2 Del Method 97.7 F L 95 18 133/79 H 98 Room Air 04/01/22 08:55 04/01/22 08:55 04/01/22 08:55 04/01/22 08:55 04/01/22 08:55 04/01/22 08:55 Oxygen Delivery Method Room Air Weight: 264 lb Body Mass Index (BMI) 49.8 Intake & Output: Intake and Output for Last 24 Hours 03/30/22 03/31/22 04/01/22 23:59 23:59 23:59 Intake Total 1000 / 1000 2695 / 2695 Output Total 1625 / 1625 Balance 1000 / 1000 1070 / 1070 Lab / Micro Data Result Diagrams: 04/01/22 05:00 Labs: Laboratory Results - last 24 hr 04/01/22 05:00: WBC 13.3 H, RBC 3.25 L, Hgb 8.0 L, Hct 26.7 L, MCV 82.2, MCH 24.6 L, MCHC 30.0 L, RDW Std Deviation 57.7 H, RDW Coeff of Mariana 19.6 H, Plt Count 264, MPV 9.3 04/01/22 05:07: POC Glucose 91 Physical Exam Const alert and oriented x3 HEENT normocephalic Eyes PERRL Neck full ROM Resp normal respiratory effort GI soft to palpation GI Narrative: FF below U. Dressing dry and intact Palpation: tender other (appropriately) Assessment & Plan (1) delivery delivered: COMMENT: RLTCS 39 SM SROM boy Jeffery; left partial salpingectomy (2) Anemia: (3) Anxiety: COMMENT: lexapro/stable (4) Gestational diabetes: QUALIFIERS: Gestational diabetes mellitus control: insulin- controlled Trimester: second trimester Qualified Code(s): O24.414 - Gestational diabetes mellitus in , insulin controlled COMMENT: resolved PLAN: Plan s/p LTCS PPD # 1 1. routine post care 2. breast feeding- support given 3. rh positive 4. rubella immune 5. consult Dr Max:she will order IV fenofer and rpt CBC this pm
[2022-04-01] MEDS: 0.9% Saline Lock 10 ML Syringe IV ×2 (11:09→13:57)
[2022-04-01] MEDS: Senna/Docusate Sodium 1 Tablet PO (11:41)
--- NOTE | 2022-04-01 13:27 | NURSING ---
student nurse reviewed. charting used for learning and educational purposes.
[2022-04-01 18:52] LABS: Hematocrit 28.9 % (37-47); Hemoglobin 8.7 g/dL (12.0-15.0); Mean Corp Hgb Conc 30.1 g/dL (32-36); Mean Corpuscular Hgb 24.7 pg (27.0-32.0); Mean Corpuscular Volume 82.1 fL (81-99); Mean Platelet Vol. 9.8 fl (6.2-12.0); POSITIVE MORPHOLOGY YES; Platelet Count 311 K/mm3 (150-450); RBC Distribution Width CV 20.1 % (11.6-14.6); RBC Distribution Width SD 58.1 fl (35.1-43.9); Red Blood Count 3.52 M/mm3 (4.2-5.4); White Blood Count 15.8 K/mm3 (4.4-11.0)
[2022-04-01 18:57] LABS: Scan Indicated on CBC? Y/N YES- FLAGS NOTED
[2022-04-01 19:28] LABS: Differential Comment SCANNED
[2022-04-02] MEDS: Acetaminophen 500 MG Tablet 1000 MG PO ×3 (00:13→12:11)
[2022-04-02] MEDS: Ibuprofen 600 MG Tablet PO ×3 (02:19→14:03)
[2022-04-02 03:01] VITALS: BP 137/75; PULSE 75; RESP 16; TEMP 36.8; O2SAT 97
[2022-04-02 08:27] VITALS: BP 131/89; PULSE 83; RESP 16; TEMP 36.4; O2SAT 99
[2022-04-02] MEDS: Senna/Docusate Sodium 1 Tablet PO (10:14)
[2022-04-02] MEDS: Enoxaparin 40 MG/0.4 ML Syringe SC (10:14)
[2022-04-02] MEDS: oxyCODONE 5 MG Tablet PO ×2 (10:18→14:03)
--- NOTE | 2022-04-02 13:26 | PN.OBGYN_ITS ---
Subjective Subjective Patient doing well without complaints. Tolerating PO. Ambulating and voiding without difficulty. feeding well. Denies chest pain, shortness of breath, calf pain/swelling, fevers, chills, lightheadedness. Objective Data Objective Data Vital Signs: Vital Signs Temp Pulse Resp BP Pulse Ox O2 Del Method 97.6 F L 83 16 131/89 H 99 Room Air 04/02/22 08:27 04/02/22 08:27 04/02/22 08:27 04/02/22 08:27 04/02/22 08:27 04/02/22 08:27 Oxygen Delivery Method Room Air Weight: 264 lb Body Mass Index (BMI) 49.8 Intake & Output: Intake and Output for Last 24 Hours 03/31/22 04/01/22 04/02/22 23:59 23:59 23:59 Intake Total 2695 / 2695 265 / 265 Output Total 1625 / 1625 Balance 1070 / 1070 265 / 265 Lab / Micro Data Result Diagrams: 04/01/22 18:40 Labs: Laboratory Results - last 24 hr 04/01/22 18:40: WBC 15.8 H, RBC 3.52 L, Hgb 8.7 L, Hct 28.9 L, MCV 82.1, MCH 24.7 L, MCHC 30.1 L, RDW Std Deviation 58.1 H, RDW Coeff of Mariana 20.1 H, Plt Count 311, MPV 9.8, Differential Comment SCANNED ROS Constitutional Constitutional: Reports systems reviewed and no addt'l complaints, except as documented Cardiovascular Cardiovascular: Reports systems reviewed and no addt'l complaints, except as documented Respiratory/Chest Respiratory/Chest: Reports systems reviewed and no addt'l complaints, except as documented Gastrointestinal Gastrointestinal: Reports systems reviewed and no addt'l complaints, except as documented Physical Exam Const alert, oriented x3 and no apparent distress HEENT Head and Scalp: atraumatic Resp normal respiratory effort GI soft to palpation and non-tender Inspection: incision intact, healing well and drainage (none) Bimanual Exam - Vag & Uterus: uterus non-tender Uterus Palpation: uterus fundus firm (below Umbilicus) Assessment & Plan (1) Anemia: (2) delivery delivered: COMMENT: RLTCS 39 SM SROM boy Jeffery; left partial salpingectomy (3) Anxiety: COMMENT: lexapro/stable (4) Gestational diabetes: QUALIFIERS: Gestational diabetes mellitus control: insulin- controlled Trimester: second trimester Qualified Code(s): O24.414 - Gestational diabetes mellitus in , insulin controlled COMMENT: resolved (5) Asthma: COMMENT: inhaler prn
[2022-04-02 13:37] VITALS: BP 125/79; PULSE 86; RESP 16; TEMP 36.7; O2SAT 99
== END 2022-04-02 15:45 | disposition home or self-care (01) | DRG 785 ==
LOC: WPOUT 21:25 → WP 21:25
PROVIDERS: Obstetrics & Gynecology; Admitting Provider Obstetrics & Gynecology; PCP Family Medicine; Visit Provider Obstetrics & Gynecology
DX: O34.219 Maternal care for unspecified type scar from previous cesarean delivery (principal); F41.9 Anxiety disorder, unspecified; J45.909 Unspecified asthma, uncomplicated; O32.2XX0 Maternal care for transverse and oblique lie, not applicable or unspecified; O99.344 Other mental disorders complicating childbirth; O99.52 Diseases of the respiratory system complicating childbirth; O24.424 Gestational diabetes mellitus in childbirth, insulin controlled; O99.214 Obesity complicating childbirth; Z37.0 Single live birth; Z3A.38 38 weeks gestation of pregnancy
CPT/HCPCS: 59025; 59050; 82962; 84112; 85025; 85027; 86850; 86900; 86901; 99218; J1756; J7050; J7120; A4216; G0378; J2405

== ENCOUNTER → 2022-04-14 | Outpatient (CLI) | payer BC, SELFPAY ==
[2022-04-14 14:25] LABS: Absolute Lymphocyte Count 2.59 X10^3/uL (0.83-4.51); Absolute Neutrophil Count 4.4 X10^3/uL (2.0-7.7); Basophil# 0.06 X10^3/uL; Basophil% 0.7 % (0-1); Differential Indicated SCAN CRITERIA MET; Eosinophil# 0.54 X10^3/uL; Eosinophils% 6.6 % (0-5); Hematocrit 36.5 % (37-47); Hemoglobin 10.6 g/dL (12.0-15.0); Lymphocyte # 2.59 X10^3/ul (0.83-4.51); Lymphocyte % 31.6 % (19-41); Mean Corpuscular Hgb 24.8 pg (27.0-32.0); Mean Corpuscular Volume 85.3 fL (81-99); Mean Platelet Vol. 9.7 fl (6.2-12.0); Monocyte# 0.51 X10^3/uL; Monocyte% 6.2 % (0-10); NRBC Flagged by Analyzer 0.7 % (0-5); Neutrophil # 4.44 X10^3/uL (2.7-7.7); Neutrophil % 54.3 % (47-70); POSITIVE MORPHOLOGY YES; Platelet Count 340 K/mm3 (150-450); RBC Distribution Width CV 21.7 % (11.6-14.6); RBC Distribution Width SD 65.9 fl (35.1-43.9); Red Blood Count 4.28 M/mm3 (4.2-5.4); White Blood Count 8.2 K/mm3 (4.4-11.0)
[2022-04-14 14:33] LABS: Protein, Urine (Random) 36.2 mg/dL (<11.9); Protein:Creat Ratio 147 mg/g CRE (0-200)
[2022-04-14 14:38] LABS: ALB/GLOB Ratio 0.8 RATIO (0.9-2.4); AST(SGOT) 21 U/L (15-37); Alanine Aminotransfer ALT/SGPT 33 U/L (13-56); Albumin, Serum 3.5 g/dL (3.2-5.0); Alkaline Phosphatase 114 U/L (45-117); Anion Gap 7 (5-15); BUN 12 mg/dL (7-18); BUN/Creat Ratio 13.5 RATIO (10-20); Chloride 107 mmol/L (98-107); Creatinine, Serum 0.89 mg/dL (0.55-1.02); EST Glomerular Filtration Rate 79 mL/min (>60); Est Glom Filt Rate - Afr Amer 95 mL/min (>60); Globulin 4.5 g/dL (2.2-4.2); Glucose 87 mg/dL (74-106); Potassium 3.8 mmol/L (3.5-5.1); Sodium Level 141 mmol/L (136-145)
[2022-04-14 14:45] LABS: Anisocytosis 1+
== END | disposition home or self-care (01) ==
LOC: PAVLAB 13:54
PROVIDERS: PCP Family Medicine; Referring Provider Registered Nurse; Visit Provider Registered Nurse
DX: R03.0 Elevated blood-pressure reading, without diagnosis of hypertension (principal)
CPT/HCPCS: 36415; 80053; 82570; 84156; 85025

== ENCOUNTER → 2023-08-12 | Outpatient (CLI) | payer OTHER, SELFPAY ==
[2023-08-12 18:15] LABS: Hemoglobin A1c 5.8 % (3.8-5.6)
[2023-08-12 18:30] LABS: Thyroid Stim Hormone (TSH) 0.79 uIU/mL (0.358-3.74)
[2023-08-16 13:07] LABS: QNTFERON TB Mitogen Value > 10.00 IU/mL (.); QNTFERON TB Nil Value 0 IU/mL (.); QNTFERON TB1+ Ag Value 0.06 IU/mL (.); QNTFERON TB2+ Ag Value 0.04 IU/mL (.); QNTIFERON TB Positive Criteria Negative (Negative)
== END | disposition home or self-care (01) ==
LOC: BFHLAB 16:22
PROVIDERS: PCP Family Medicine; Visit Provider Family Medicine
DX: Z11.1 Encounter for screening for respiratory tuberculosis (principal); R73.01 Impaired fasting glucose; R53.83 Other fatigue
CPT/HCPCS: 36415; 83036; 84443; 86480